=== PATIENT | male | born 1970 | race Hispanic/Latino ===

== ENCOUNTER 2018-09-10 12:18 | Emergency (ER) | payer SELFPAY ==
[2018-09-10 12:50] LABS: Absolute Lymphocytes (CBC) 0.5 K/uL (0.7-4.9); Absolute Monocytes 0.5 K/uL (0.1-1.3); Absolute Neutrophil 7.4 K/uL (1.8-8.0); Basophils % 0.4 % (0-1.3); Eosinophils % 0.2 % (0-4.4); Hematocrit 35.6 % (39.6-49.0); Lymphocytes % 5.5 % (15.3-44.8); MCH 23.5 pg (27.0-35.0); MCV 71.8 fL (80-100); MPV 7.5 fL (7.6-11.3); Monocytes % 6.3 % (3.3-12.3); RBC Red Blood Cell Count 4.97 M/uL (4.33-5.43)
[2018-09-10] MEDS ORDERED: NA CHLORIDE 0.9% 1,000 ML ONE (12:51)
[2018-09-10 13:20] LABS: BUN Blood Urea Nitrogen 9 mg/dL (7-18); Bicarbonate 25 mmol/L (21-32); Potassium 3.8 mmol/L (3.5-5.1); Sodium Level 129 mmol/L (136-145); Thyroid Stimulating Hormone 0.551 uIU/mL (0.360-3.740)
[2018-09-10 13:22] LABS: Glucose Level 419 mg/dL (74-106)
--- NOTE | 2018-09-10 13:56 | RAD REPORT ---
EXAM DESCRIPTION: RAD - Chest Pa And Lat (2 Views) - 09/10/2018 1:51 pm CLINICAL HISTORY: CONGESTION Chest pain. COMPARISON: No comparisons FINDINGS: The lungs are clear. The heart is normal in size. No displaced fractures. IMPRESSION: No acute or concerning finding suspected.
--- NOTE | 2018-09-10 15:19 | EKG ---
Test Date: 2018-09-10 Test Time: 13:39:12 Clam Bed Laborer: CHECO MEASUREMENT RESULTS: Intervals: Rate: 103 NC: 130 QRSD: 90 QT: 360 QTc: 471 [place]: P: 74 NC: 130 QRS: 11 T: -20 INTERPRETIVE STATEMENTS: Sinus tachycardia T wave abnormality, consider inferior ischemia Abnormal ECG No previous ECG available for comparison Electronically Signed On 09-10-18 15:18:57 [employer] by Issa Desai
--- NOTE | 2018-09-10 15:54 | EDPHYS ---
Physician Documentation [facility] Name: Florentin George III Age: 47 yrs Sex: Male : 1970 Arrival Date: 09/10/2018 Time: 12:21 Bed 7 Private MD: None, None ED Physician Manuel Jerry HPI: 09/10 16:37 This 47 yrs old Male presents to ER via Ambulatory with complaints of Passed gs Out Prior To Arrival. 16:37 The patient has experienced syncope, became unresponsive. Onset: The symptoms/episode gs began/occurred acutely, just prior to arrival. Duration: This was a single episode, that lasted 1 minute(s). Context: the episode(s) was witnessed, by family, occurred at home, occurred while the patient was in shower, sat in chair. Associated injury: The patient did not suffer any apparent associated injury. Associated signs and symptoms: Pertinent negatives: abdominal pain, chest pain, confusion, headache, seizure, shortness of breath, tingling, vertigo, vomiting, weakness. Current symptoms: Currently, the patient is not experiencing any symptoms. The patient has not experienced similar symptoms in the past. Historical: - Allergies: 12:34 No Known Allergies; aa5 - Home Meds: 12:34 None [Active]; aa5 - PMHx: 12:34 None; aa5 - PSHx: 12:34 None; aa5 - Immunization history:: Adult Immunizations up to date. - Ebola Screening: : No symptoms or risks identified at this time. - Social history:: Smoking status: Patient/guardian denies using tobacco, Patient/guardian denies using alcohol. ROS: 16:37 All other systems are negative. gs 16:37 ENT: Positive for nasal discharge, sinus congestion. gs Exam: 16:37 Head/Face: Normocephalic, atraumatic. Eyes: Pupils equal round and reactive to light, gs extra-ocular motions intact. Lids and lashes normal. Conjunctiva and sclera are non-icteric and not injected. Cornea within normal limits. Periorbital areas with no swelling, redness, or edema. ENT: Nares patent. No nasal discharge, no septal abnormalities noted. Tympanic membranes are normal and external auditory canals are clear. Oropharynx with no redness, swelling, or masses, exudates, or evidence of obstruction, uvula midline. Mucous membranes moist. Neck: Trachea midline, no thyromegaly or masses palpated, and no cervical lymphadenopathy. Supple, full range of motion without nuchal rigidity, or vertebral point tenderness. No Meningismus. Chest/axilla: Normal chest wall appearance and motion. Nontender with no deformity. No lesions are appreciated. Cardiovascular: Regular rate and rhythm with a normal S1 and S2. No gallops, murmurs, or rubs. Normal PMI, no JVD. No pulse deficits. Respiratory: Lungs have equal breath sounds bilaterally, clear to auscultation and percussion. No rales, rhonchi or wheezes noted. No increased work of breathing, no retractions or nasal flaring. Abdomen/GI: Soft, non-tender, with normal bowel sounds. No distension or tympany. No guarding or rebound. No evidence of tenderness throughout. Back: No spinal tenderness. No costovertebral tenderness. Full range of motion. Skin: Warm, dry with normal turgor. Normal color with no rashes, no lesions, and no evidence of cellulitis. MS/ Extremity: Pulses equal, no cyanosis. Neurovascular intact. Full, normal range of motion. Neuro: Awake and alert, GCS 15, oriented to person, place, time, and situation. Cranial nerves II-XII grossly intact. Motor strength 5/5 in all extremities. Sensory grossly intact. Cerebellar exam normal. Normal gait. 16:37 Constitutional: The patient appears alert, awake. 16:37 ECG was reviewed by the Attending Physician. Vital Signs: 12:30 BP 141 / 83; Pulse 108; Resp 15; Temp 97.9; Pulse Ox 99% on R/A; Pain 0/10; hb 12:58 BP 123 / 79; Pulse 98; Resp 18; Pulse Ox 98% on R/A; hj 14:03 BP 130 / 82; Pulse 91; Resp 18; Pulse Ox 100% on R/A; hj 15:02 BP 118 / 79; Pulse 91; Resp 18; Pulse Ox 100% on R/A; hj 15:43 BP 122 / 80; Pulse 89; Resp 18; Pulse Ox 100% on R/A; hj MDM: 12:36 Patient medically screened. 16:37 Differential Diagnosis: cardiac arrhythmia, idiopathic syncope, vasovagal episode. Data gs reviewed: vital signs, nurses notes. Counseling: I had a detailed discussion with the patient and/or guardian regarding: the historical points, exam findings, and any diagnostic results supporting the discharge/admit diagnosis, lab results, the need for outpatient follow up. Response to treatment: the patient's symptoms have resolved after treatment, and as a result, I will discharge patient. 09/10 12:37 Order name: CBC with Diff; Complete Time: 13:33 gs 09/10 12:37 Order name: Basic Metabolic Panel; Complete Time: 13:33 gs 09/10 12:37 Order name: TSH; Complete Time: 13:33 gs 09/10 12:37 Order name: Flu; Complete Time: 13:33 gs 09/10 12:40 Order name: Glucose, Ancillary Testing; Complete Time: 13:33 EDMS 09/10 13:58 Order name: Glucose; Complete Time: 15:42 gs 09/10 12:37 Order name: EKG; Complete Time: 12:38 09/10 12:37 Order name: EKG - Nurse/Tech; Complete Time: 12:38 09/10 12:37 Order name: XRAY Chest Pa And Lat (2 Views); Complete Time: 13:58 09/10 12:39 Order name: Blood Glucose Level; Complete Time: 12:39 dh3 09/10 15:34 Order name: Glucose, Ancillary Testing; Complete Time: 15:42 EDMS EC:37 Rate is 103 beats/min. Rhythm is regular. [place] interval is normal. QRS interval is gs normal. T waves are Normal. No ST changes noted. Clinical impression: Abnormal EKG without significant change. Interpreted by me. Administered Medications: 12:38 Drug: NS 0.9% 1000 ml Route: IV; Rate: 1 bolus; Site: right antecubital; 13:34 Follow up: Response: No adverse reaction; IV Status: Completed infusion hb Point of Care Testing: Blood Glucose: 12:38 Blood Glucose: 405 mg/dL; dh3 14:03 Blood Glucose: 332 mg/dL; Ranges: Critical Glucose Levels:Adult <50 mg/dl or >400 mg/dl <40 mg/dl or >180 mg/dl Disposition: 09/10/18 15:53 Discharged to Home. Impression: Syncope and collapse, Type 2 diabetes mellitus. - Condition is Stable. - Discharge Instructions: Syncope, Vasovagal Syncope, Adult. - Prescriptions for Metformin 500 mg Oral Tablet - take 1 tablet by ORAL route once daily for 7 days Then take 1 tablet with morning meals AND evening meals; 21 tablet. - Medication Reconciliation Form, Thank You Letter, Antibiotic Education, Prescription Opioid Use form. - Follow up: Private Physician; When: 2 - 3 days; Reason: Re-evaluation by your physician. Signatures: Dispatcher [employer] EDMS Ivania Peterson RN RN aa5 Thomas Khoury RN RN Ami No RN RN Bettye Mera [facility] Manuel Jerry MD MD Corrections: (The following items were deleted from the chart) 16:07 15:53 09/10/2018 15:53 Discharged to Home. Impression: Syncope and collapse; Type 2 hb diabetes mellitus. Condition is Stable. Forms are Medication Reconciliation Form, Thank You Letter, Antibiotic Education, Prescription Opioid Use. Follow up: Private Physician; When: 2 - 3 days; Reason: Re-evaluation by your physician. gs
--- NOTE | 2018-09-10 15:54 | ER ---
Nurse's Notes [facility] Name: Florentin George III Age: 47 yrs Sex: Male : 1970 Arrival Date: 09/10/2018 Time: 12:21 Bed 7 Private MD: None, None Diagnosis: Syncope and collapse;Type 2 diabetes mellitus Presentation: 09/10 12:29 Presenting complaint: Patient states: "I was in the shower and felt lightheaded so I aa5 sat down on a stool and passed out". Pt reports was found by . 12:29 Transition of care: patient was not received from another setting of care. Onset of aa5 symptoms was September 10, 2018. Risk Assessment: Do you want to hurt yourself or someone else? Patient reports no desire to harm self or others. Initial Sepsis Screen: Does the patient meet any 2 criteria? No. Patient's initial sepsis screen is negative. Does the patient have a suspected source of infection? No. Patient's initial sepsis screen is negative. Care prior to arrival: None. 12:29 Method Of Arrival: Ambulatory aa5 12:29 Acuity: AGUEDA 3 aa5 Triage Assessment: 12:39 General: Appears in no apparent distress. uncomfortable, Behavior is calm, cooperative, hj appropriate for age. Pain: Denies pain. Historical: - Allergies: 12:34 No Known Allergies; aa5 - Home Meds: 12:34 None [Active]; aa5 - PMHx: 12:34 None; aa5 - PSHx: 12:34 None; aa5 - Immunization history:: Adult Immunizations up to date. - Ebola Screening: : No symptoms or risks identified at this time. - Social history:: Smoking status: Patient/guardian denies using tobacco, Patient/guardian denies using alcohol. Screenin:35 Abuse screen: Denies threats or abuse. Denies injuries from another. Nutritional hb screening: No deficits noted. Tuberculosis screening: No symptoms or risk factors identified. Fall Risk Total Abreu Fall Scale indicates High Risk Score (45 or more points). Fall prevention measures have been instituted. Side Rails Up X 2 Frequent Obs/Assessments Occuring Family Present and informed to notify staff if the need to leave the bedside As available patient and family educated on Fall Prevention Program and Strategies. Assessment: 12:35 General: Appears in no apparent distress. uncomfortable, Behavior is calm, cooperative, hj appropriate for age. Pain: Denies pain. Neuro: Level of Consciousness is awake, alert, obeys commands, Oriented to person, place, time, situation, Appropriate for age Reports passed out prior to arrival; denies hitting head;. Cardiovascular: Capillary refill < 3 seconds Patient's skin is warm and dry. Respiratory: Airway is patent Respiratory effort is even, unlabored, Respiratory pattern is regular, symmetrical. GI: No signs and/or symptoms were reported involving the gastrointestinal system. : No signs and/or symptoms were reported regarding the genitourinary system. EENT: No signs and/or symptoms were reported regarding the EENT system. Derm: No signs and/or symptoms reported regarding the dermatologic system. Musculoskeletal: No signs and/or symptoms reported regarding the musculoskeletal system. 13:30 Reassessment: Patient appears in no apparent distress at this time. Patient and/or hb family updated on plan of care and expected duration. Pain level reassessed. Patient is alert, oriented x 3, equal unlabored respirations, skin warm/dry/pink. 14:30 Reassessment: Patient appears in no apparent distress at this time. No changes from hb previously documented assessment. Patient and/or family updated on plan of care and expected duration. Pain level reassessed. Patient is alert, oriented x 3, equal unlabored respirations, skin warm/dry/pink. 15:27 Reassessment: Patient appears in no apparent distress at this time. No changes from hb previously documented assessment. Patient and/or family updated on plan of care and expected duration. Pain level reassessed. Patient is alert, oriented x 3, equal unlabored respirations, skin warm/dry/pink. 15:43 Reassessment: Patient and/or family updated on plan of care and expected duration. Pain hj level reassessed. Patient is alert, oriented x 3, equal unlabored respirations, skin warm/dry/pink. glucose came back- 287; MD aware;. Vital Signs: 12:30 BP 141 / 83; Pulse 108; Resp 15; Temp 97.9; Pulse Ox 99% on R/A; Pain 0/10; hb 12:58 BP 123 / 79; Pulse 98; Resp 18; Pulse Ox 98% on R/A; hj 14:03 BP 130 / 82; Pulse 91; Resp 18; Pulse Ox 100% on R/A; hj 15:02 BP 118 / 79; Pulse 91; Resp 18; Pulse Ox 100% on R/A; hj 15:43 BP 122 / 80; Pulse 89; Resp 18; Pulse Ox 100% on R/A; hj ED Course: 12:21 Patient arrived in ED. mr 12:22 None, None is Private Physician. mr 12:28 Manuel Jerry MD is Attending Physician. gs 12:28 Arm band placed on Patient placed in an exam room, on a stretcher. aa5 12:33 Triage completed. aa5 12:35 Initial lab(s) drawn, by me, sent to lab. Inserted saline lock: 22 gauge in right hj antecubital area, using aseptic technique. Blood collected. 12:38 Thomas Khoury, ANDREW is Primary Nurse. hj 12:40 EKG done, by costume technician. reviewed by Manuel Jerry MD. 3 12:41 Patient has correct armband on for positive identification. Placed in gown. Bed in low hj position. Call light in reach. Side rails up X 1. Adult w/ patient. 12:47 Flu and/or RSV swab sent to lab. 3 13:22 Notified ED physician of a critical lab result(s). etvd=[id number]. iw 13:51 X-ray completed. Patient tolerated procedure well. Patient moved back from radiology. 1 13:51 XRAY Chest Pa And Lat (2 Views) In Process Unspecified. EDMS 15:05 Repeat lab(s) drawn. by me, sent to lab. 3 16:06 No provider procedures requiring assistance completed. IV discontinued, intact, hb bleeding controlled, No redness/swelling at site. Pressure dressing applied. Administered Medications: 12:38 Drug: NS 0.9% 1000 ml Route: IV; Rate: 1 bolus; Site: right antecubital; hj 13:34 Follow up: Response: No adverse reaction; IV Status: Completed infusion hb Point of Care Testing: Blood Glucose: 12:38 Blood Glucose: 405 mg/dL; 3 14:03 Blood Glucose: 332 mg/dL; hj Ranges: Outcome: 15:53 Discharge ordered by . gs 16:06 Discharged to home ambulatory, with family. hb 16:06 Condition: stable 16:06 Discharge instructions given to patient, family, Instructed on discharge instructions, follow up and referral plans. medication usage, Demonstrated understanding of instructions, follow-up care, medications, Prescriptions given X 1. 16:07 Patient left the ED. hb Signatures: Dispatcher [employer] Katie Gurrola Martha 1 Felisha Orellana, RN ANDREW Ivania Peterson RN RN aa5 Thomas Khoury RN RN Ami No RN RN Bettye Mera 3 Manuel Jerry MD MD Josie Ferreira 3 Corrections: (The following items were deleted from the chart) 12:35 12:30 BP 141 / 83; Pulse 108bpm; Resp 14bpm; Pulse Ox 99% RA; Temp 97.9F; Pain 0/10; hb hb
== END 2018-09-10 16:07 | disposition home or self-care (01) ==
LOC: ER 12:18
DX: E11.9 Type 2 diabetes mellitus without complications (principal); R55 Syncope and collapse; R94.31 Abnormal electrocardiogram [ECG] [EKG]
CPT/HCPCS: 36415; 71046; 80048; 82947; 82962; 84443; 85025; 87804; 93005; 96360; 99284; J7030